=== PATIENT | male | born 1990 | race Caucasian/White ===

== ENCOUNTER 2023-05-17 13:24 | Day surgery (SDC) | payer MEDICAID, SELFPAY ==
[2023-05-14 14:22] VITALS: BMI 25.1
[2023-05-17] VITALS (7 sets, daily range): BP systolic 89–132; BP diastolic 48–72; PULSE 60–80; RESP 18; TEMP 36.2–36.5; O2SAT 91–100
--- NOTE | 2023-05-17 13:53 | P.PNANES_ITS ---
[facility] Disclaimer: The information contained in this section may have been updated after the patient was seen, as this information can be updated by other users. Medical History GERD (gastroesophageal reflux disease) Surgical History History of arthroscopic knee surgery History of surgical removal of pilonidal cyst Family History Other No significant family history Social History (Updated 05/17/23 @ 13:42 by Janel Lujan RN) Smoking Status: Former smoker years smoked: 10 alcohol intake: current substance use type: marijuana current occupational status: employed Travel in the last 8 weeks: None caffeine: Yes [facility] Anesthesia Checklist Patient Identification Patient Identification: Arm Band Structural Data Admitted From: Home Planned Operative Procedure/s: EGD Consent for Planned Operative Procedure(s) Verified: Yes Verified Documents: Surgical Consent and History and Physical NPO Status Verified Time NPO: 00:00 Additional verifications Anesthesia Reactions: No Airway Assessment Mallampati Score:: Class I C-Spine Mobility Assessed: Yes TMJ Mobility Assessed: Yes Dentition: Good Dentition Neurological Assessment Level of Consciousness: Awake and Alert Anesthesia Plan Anesthesia Risk discussed: Yes Anesthesia Plan: Verified ASA Class: I Anesthesia Type: MAC
--- NOTE | 2023-05-17 14:23 | [facility].SCOPE ---
Procedure: Date: 05/17/23 Patient Date of :: 1990 Procedure Performed:: Esophagogastroduodenoscopy with biopsies Indications:: Patient is a pleasant 32-year-old male whom I am asked to see by Dr. Martinez for possible endoscopy. Patient has a longstanding history of dyspepsia and heartburn symptoms for about 8 or 10 years. He has been on omeprazole. Initially this helped. When he does not take this he has significant return of symptoms. Relatively recently and had ceased to be effective. He had doubled up on the dosage. He had changed his diet about a month ago and had been eating less processed foods and eating trolley cleaner with high lean protein. This caused significant exacerbation of his symptoms. Interestingly when he returned to his previous diet his symptoms resolved. Performing Provider:: Kel Steven MD Referring Provider:: . Sedation:: MAC sedation Procedure:: Patient history was obtained and appropriate physical examination was performed. Patient's medications and allergies were reviewed. Informed consent was obtained after explaining the benefits, alternatives, and risks of the procedure including, but not limited to, bleeding, perforation, missed lesions, and adverse reaction to anesthesia medications. Patient was transported to endoscopy procedure room. Patient was connected to monitoring devices. Throughout the procedure the patient's blood pressure, pulse, and oxygen saturations were monitored continuously. Patient identification and planned procedure were verified by the staff. Patient was positioned in lateral decubitus position. Olympus endoscope was inserted via the oropharynx. There was some minimal tortuosity to the esophagus. Gastroesophageal junction was encountered at 40 cm. Stomach was cannulated and insufflated. There were focal findings consistent with focal reflux esophagitis at the gastroesophageal junction. Retroflexion within the stomach revealed a small 3 to 4 cm hiatal hernia. There is some diffuse linear nonerosive gastropathy. Gastric biopsies were obtained. Pylorus was traversed. Duodenum appeared unremarkable. Endoscope was withdrawn into the distal esophagus and a couple biopsies were obtained at the gastroesophageal junction. There was some minor oozing. This was observed for some time to assure hemostasis. Biopsy was obtained the distal esophagus. Stomach was desufflated and the endoscope was withdrawn. Findings:: Gastroesophageal junction at 40 cm Findings consistent with focal esophagitis, biopsied Small 3 to 4 cm hiatal hernia Diffuse nonerosive gastropathy Recommendations:: Follow-up on the biopsy results. Medically managed. Some of this could be lifestyle and dietary related Complications:: None immediately apparent Estimated blood obtained (mL): 4 Colonoscopy Component Colonoscopy Component Was a colonoscopy performed during today's procedure?: No
== END 2023-05-17 15:09 | disposition home or self-care (01) ==
PROVIDERS: PCP Internal Medicine; Visit Provider Surgery
PROC: 0DJ08ZZ Inspection of Upper Intestinal Tract, Via Natural or Artificial Opening Endoscopic (ICD-10-PCS; CPT 43235; principal; 2023-05-17 14:00)
DX: K29.50 Unspecified chronic gastritis without bleeding (principal); K21.00 Gastro-esophageal reflux disease with esophagitis, without bleeding; K44.9 Diaphragmatic hernia without obstruction or gangrene; K31.9 Disease of stomach and duodenum, unspecified
CPT/HCPCS: 43239; J2704